=== PATIENT | male | born 1955 | race African-American/Black ===

== ENCOUNTER 2020-03-11 20:56 | Emergency (ER) | payer OTHER ==
[~2020-03-11] VITALS: Ht 167.6 cm; Wt 62.0 kg
--- NOTE | 2020-03-11 21:16 | PHYS DOC ---
Past History Past Medical History: Bronchitis, Diabetes, Pneumonia Past Medical History + COVID General Adult EDM: Chief Complaint: SHORTNESS OF BREATH HPI: HPI: " Mumbles".."..I so...short ...breath...COVID..." Patient is a 64 year old male who presents with above hx and complaints of +COVID. Pt. Just arrived from [place] after a 20-hour drive. Patient reportedly was sick with COVID down in [place]. Was hospitalized for short time and discharged yesterday. Pt.very poor historian. Patient extremely dyspneic and hypoxic on room air. Review of Systems: Review of Systems: Constitutional: Hx. of fever and chills Eyes: Denies change in visual acuity HENT: Denies nasal congestion or sore throat Respiratory: History of cough and shortness of breath Cardiovascular: Denies chest pain or edema GI: Denies abdominal pain, nausea, vomiting, bloody stools or diarrhea : Denies dysuria Musculoskeletal: Denies back pain or joint pain Integument: Denies rash Neurologic: Denies headache, focal weakness or sensory changes Endocrine: Denies polyuria or polydipsia Lymphatic: Denies swollen glands Psychiatric: Denies depression or anxiety Heart Score: HEART Score for Chest Pain: HEART Score for Chest Pain Response (Comments) Value History Highly Suspicious 2 ECG Nonspecific Repolarizatio 1 Age >45 - < 65 1 Risk Factors 1 or 2 Risk Factors 1 Troponin < Normal Limit 0 Total 5 Risk Factors: Risk Factors: DM, Current or recent (<one month) smoker, HTN, HLP, family hi story of CAD, obesity. Risk Scores: Score 0 - 3: 2.5% MACE over next 6 weeks - Discharge Home Score 4 - 6: 20.3% MACE over next 6 weeks - Admit for Clinical Observation Score 7 - 10: 72.7% MACE over next 6 weeks - Early Invasive Strategies Family History: Family History: Not currently available Current Medications: Current Meds: See nursing for home meds Allergies: Allergies: No known drug allergies Physical Exam: PE: Constitutional: in acute distress, very ill in appearance. [] HENT: Normocephalic, atraumatic, bilateral external ears normal, oropharynx dry, no oral exudates, nose normal. [Poor dentition Eyes: PERRLA, EOMI, conjunctiva normal, no discharge. [Arcus Neck: Normal range of motion, no tenderness, supple, no stridor. [] Cardiovascular: Tachycardia heart rate regular rhythm, no murmur [] occasional PVCs PMI to Lt. Lungs & Thorax: Bilateral breath sounds with rhonchi and wheezing throughout on auscultation [. Patient had] intercostal retractions. Abdomen: Bowel sounds decreased, soft, no tenderness, no masses, no pulsatile masses. [] Abdomen distended and tympanic. Noncircumcised male Skin: Warm, dry, no erythema, no rash. Poor turgor. Back: No tenderness, no CVA tenderness. [] Extremities: No tenderness, peripheral cyanosis, no clubbing, ROM intact, no e nara. Arthritic changes Neurologic: Alert times name and place, moving all extremities. Does appear to have distal sensory, no focal deficits noted. [] Psychologic: Affect anxious, judgement impaired, mood depressed EKG: EKG: My interpretation EKG shows a sinus tachycardia with strain pattern. Inferior changes. Abnormal EKG [] Radiology/Procedures: Radiology/Procedures: [address] [address] IMAGING REPORT Signed PATIENT: CISCO RODRÍGUEZ ACCOUNT: [id number] : 1955 LOCATION: ER AGE: 64 SEX: M EXAM STATUS: REG ER ORD. PHYSICIAN: MARYELLEN MULLINS MD REASON: chest tube PROCEDURE: CHEST AP ONLY AP portable chest radiograph 03/12/2020 Clinical History: Post chest tube placement. An AP supine portable digital radiograph of the chest was obtained. Comparison study is dated 03/11/2020. The ET and NG tube and left-sided chest tube are unchanged in position. A right-sided chest tube placed extends to overlie the right upper lobe. The large right pneumothorax seen on the previous study has largely resolved. A Very small right pneumothorax is seen. Expansion of the right lung is noted. Patchy perihilar areas of infiltrate/atelectasis are seen involving both lungs. Subcutaneous emphysema is seen along the chest wall, right greater than left. The cardiac silhouette is mildly enlarged. The thoracic aorta is mildly tortuous. The osseous structures are unchanged. Impression: Interval placement of a right-sided chest tube. The large right pneumothorax has largely resolved. Electronically signed by: Tan Parada MD (03/12/2020 12:35 AM) [id number] DICTATED AND SIGNED BY: TAN PARADA MD DATE: 03/12/20 0035 CC: MARYELLEN MULLINS MD; PCP,NO ~ [][place] [address] IMAGING REPORT Signed PATIENT: CISCO RODRÍGUEZ ACCOUNT: [id number] : 1955 LOCATION: ER AGE: 64 SEX: M EXAM STATUS: REG ER ORD. PHYSICIAN: MARYELLEN MULLINS MD REASON: COVID, HYPOXIA, POST INTUBATION. PROCEDURE: PORTABLE CHEST 1V AP portable chest radiograph 03/11/2020 Clinical History: Hypoxia. Post intubation.. Two AP supine portable digital radiographs of the chest were obtained. There is an is made to patient's CT scan of the chest dated 02/19/2011. An ET tube has been placed. The tip of this tube overlies the trachea 1 cm below the level of clavicles. A NG tube has been place. The tip of this tube extends to overlie the body of the stomach. The cardiac silhouette is mildly enlarged. The thoracic aorta is mildly tortuous. There is a large right pneumothorax with marked atelectasis of the right lung. Patchy left perihilar infiltrate is seen. No pleural effusion is noted. Degenerative changes are seen involving the thoracic spine and both shoulders. IMPRESSION: 1. ET and NG tube position as discussed above. 2. Large right pneumothorax with right lung atelectasis. This finding was discussed with the emergency department. FOR INTERNAL CODING PURPOSES RESULT CODE: (C) Electronically signed by: Tan Parada MD (03/11/2020 11:32 PM) [id number] DICTATED AND SIGNED BY: TAN PARADA MD DATE: 03/11/20 233 CC: MARYELLEN MULLINS MD; PCP,NO ~ Course & Med Decision Making: Course & Med Decision Making Pertinent Labs and Imaging studies reviewed. (See chart for details) Since patient was possible suspect COVID, use of protective mcdonald, masks, gloves and body suits use during all contact with the patient Procedure notes- Attempts of titration of oxygen, unable to maintain sats. Pt. eventually intubated to secure airway and improve oxygenation.. See flowsheet. Patient received succinylcholine and Versed. Attempt was made 7.5 tube but would not not passed between the cords.. 7 Et tube then placed by glide scope to the level of 23 cm[address] in [address] with a tube linder. NG then placed. With return of gastric contents. Central line-for pressures and IV draws The-left subclavian prepped with sterile technique. Gown mask gloves drapes. Left subclavian cannulated, however patient pulled out line. It is noted shortly thereafter patient saturations were dropping. Suspect possible pneumothorax. Patient received 18-gauge second intercostal space decompression. Chest tube placed with incision, and blunt dissection dissection on left. 28. Sutured in place It was then noted noted decreased sounds on right side still patient also received intercostal 18 needle to decompress. Right chest tube in place with incision and dissection. Sterile draping and Betadine applied prior to placemen t of chest tubes. Both chest tubes sutured in place. Only 1 Pleur-evac available which was placed on the left and s Flutter valve placed on right. Patient gradually had increasing saturations and blood pressures. Central line sterile-by technique was used with drape, gowns mask and gloves placed and left femoral area. Line was sutured in place with return of venous blood all 3 ports. Biopatch placed. Dressing applied. Discussed presentation, testing and treatment plan with Dr. Salcido- will accept pt. at [facility]. Impression: 1. Respiratory failure 2. Hyperglycemia 849 3. Acute renal failure-creatinine 3.1 4. Leukocytosis 24.4- with 77 segs and 16 bands 5. History of recent positive COVID 6. Bilateral pneumothoraxes 7. Metabolic Acidosis 8. Elevated d-dimer 14.8 Critical care time 120 minutes not counting procedures-Meds and BiPAP management. Attempted to contact - did not answer her phone. Selena Disclaimer: Selena Disclaimer: This electronic medical record was generated, in whole or in part, using a voice recognition dictation system. Departure Departure: Disposition: 01 HOME/RESIDENCE PRIOR TO ADM Condition: STABLE Referrals: PCP,NO (PCP) Justification of Admission: Justification of Admission: Justification of Admission Dx: Yes Altered Mental Status: Altered Mental Status Comments: COVID + Hx. Dragon Disclaimer This chart was dictated in whole or in part using Voice Recognition software in a busy, high-work load, and often noisy Emergency Department environment. It may contain unintended and wholly unrecognized errors or omissions. Dragon Disclaimer This chart was dictated in whole or in part using Voice Recognition software in a busy, high-work load, and often noisy Emergency Department environment. It may contain unintended and wholly unrecognized errors or omissions. MARYELLEN MULLINS MD Mar 11, 2020 21:16
[2020-03-11] MEDS ORDERED: ASPIRIN CHEWABLE 81 MG TABLET. PO ONE (21:30)
[2020-03-11] MEDS ORDERED: IV RINGERS SOLUTION,LACTATED 1,000 ML IV SCH (21:30)
[2020-03-11] MEDS ORDERED: ALBUTEROL SULFATE 8GM INHALER. INH ONE (21:45)
[2020-03-11] MEDS ORDERED: SUCCINYLCHOLINE 200 MG/10 ML VIAL. ONE ×2 (21:55→23:00)
[2020-03-11] MEDS ORDERED: PROPOFOL 100 ML IV ONE (21:57)
[2020-03-11 22:04] LABS: CALCIUM 8.8 mg/dL (8.5-10.1); CREATININE 3.1 mg/dL (0.7-1.3); GFR 24.7; POTASSIUM 4.2 mmol/L (3.5-5.1)
[2020-03-11 22:10] LABS: BILIRUBIN,URINE NEG (NEG); CLARITY,URINE HAZY; COLOR,URINE YELLOW; GLUCOSE,URINE 500 mg/dL (NEG)
[2020-03-11 22:11] LABS: BACTERIA,URINE FEW /HPF (0-FEW); GRANULAR CASTS,URINE MOD /HPF; HYALINE CASTS, URINE OCC /HPF; NITRITE,URINE NEG (NEG); SQUAMOUS EPITHELIAL CELL,UR FEW /LPF; UROBILINOGEN,URINE 0.2 mg/dL (0.2 mg/dL)
[2020-03-11 22:12] LABS: YEAST,URINE PRESENT /HPF
[2020-03-11 22:13] LABS: ALBUMIN 2.8 g/dL (3.4-5.0); DIRECT BILIRUBIN 0.2 mg/dL (0.0-0.2); MAGNESIUM 3.4 mg/dL (1.8-2.4); TOTAL BILIRUBIN 0.5 mg/dL (0.2-1.0); TOTAL PROTEIN 8.3 g/dL (6.4-8.2)
[2020-03-11 22:14] LABS: BARBITURATES NEG (NEG); BENZODIAZEPINES NEG (NEG); CANNABINOIDS NEG (NEG); COCAINE NEG (NEG); METHADONE NEG (NEG); OPIATES NEG (NEG); PHENCYCLIDINE NEG (NEG)
[2020-03-11 22:17] LABS: AMPHETAMINE/METHAMPHETAMINE NEG (NEG)
[2020-03-11 22:21] LABS: BASO % 0 % (0-3); EOS % 0 % (0-3); HEMATOCRIT 48.9 % (39.0-53.0); LYMPH # 0.8 x10^3/uL (1.0-4.8); LYMPH % 3 % (24-48); MEAN CORPUSCULAR HEMOGLOBIN 33 pg (25-35); MEAN CORPUSCULAR HGB CONC 31 g/dL (31-37); MEAN CORPUSCULAR VOLUME 106 fL (79-100); MONO # 1.5 x10^3/uL (0.0-1.1); MONO % 6 % (0-9); NEUT # 22.2 x10^3uL (1.8-7.7); NEUT % 91 % (31-73); PLATELET COUNT 480 x10^3/uL (140-400); RED BLOOD COUNT 4.61 x10^6/uL (4.30-5.70); RED CELL DISTRIBUTION WIDTH 14.1 % (11.5-14.5); WHITE BLOOD COUNT 24.4 x10^3/uL (4.0-11.0)
[2020-03-11] MEDS ORDERED: MIDAZOLAM HCL PF 5 MG/5 ML VIAL. ONE ×2 (22:36→23:00)
[2020-03-11 22:39] VITALS: BP 119/66
[2020-03-11] MEDS ORDERED: VANCOMYCIN 1 GM VIAL. ONE (22:47)
[2020-03-11] MEDS ORDERED: IV NORMAL SALINE 250ML 250 ML ONE ×2 (22:50→23:54)
[2020-03-11] MEDS ORDERED: VANCOMYCIN 1 GM in IV NORMAL SALINE 250ML 250 ML IV ONE (23:00)
[2020-03-11] MEDS ORDERED: HEPARIN for IV BOLUS 10,000 UNIT/10 ML VIAL. IV ONE (23:00)
[2020-03-11] MEDS ORDERED: INSULIN REGULAR VIAL 100 UNIT in IV NORMAL SALINE 100ML 100 ML IV ONE (23:00)
[2020-03-11 23:14] LABS: % LYMPHS 2 % (24-48)
[2020-03-11 23:15] LABS: % EOS 0 % (0-5); PLT ESTIMATE ADEQUATE (ADEQUATE)
[2020-03-11 23:16] LABS: BGAS PH 7.26 (7.35-7.46)
[2020-03-11 23:16] LABS: % SEGS 77 % (35-66)
[2020-03-11 23:17] LABS: % BANDS 16 % (0-9); % BASOS 0 % (0-3); % METAS 0 % (0-0); % MONOS 5 % (0-10)
--- NOTE | 2020-03-11 23:35 | RAD ---
AP portable chest radiograph 03/11/2020 Clinical History: Hypoxia. Post intubation.. Two AP supine portable digital radiographs of the chest were obtained. There is an is made to patient's CT scan of the chest dated 02/19/2011. An ET tube has been placed. The tip of this tube overlies the trachea 1 cm below the level of clavicles. A NG tube has been place. The tip of this tube extends to overlie the body of the stomach. The cardiac silhouette is mildly enlarged. The thoracic aorta is mildly tortuous. There is a large right pneumothorax with marked atelectasis of the right lung. Patchy left perihilar infiltrate is seen. No pleural effusion is noted. Degenerative changes are seen involving the thoracic spine and both shoulders. IMPRESSION: 1. ET and NG tube position as discussed above. 2. Large right pneumothorax with right lung atelectasis. This finding was discussed with the emergency department. FOR INTERNAL CODING PURPOSES RESULT CODE: (C) Electronically signed by: Tan Parada MD (03/11/2020 11:32 PM) [id number]
[2020-03-11] MEDS ORDERED: NOREPINEPHRINE BITARTRATE 8 MG in IV DEXTROSE 5% 250 ML IV PRN (23:45)
[2020-03-11] MEDS ORDERED: NOREPINEPHRINE BITARTRATE 4 MG/4 ML VIAL. IV ONE ×2 (23:50→23:53)
[2020-03-12] MEDS ORDERED: SUCCINYLCHOLINE 200 MG/10 ML VIAL. IV ONE
--- NOTE | 2020-03-12 00:22 | RAD ---
AP portable chest radiograph 03/11/2020 Clinical History: Chest tube placement. Two AP supine portable digital radiographs of the chest were obtained. Comparison study is dated earlier the same day at 1040 hours. An ET and NG tube are unchanged in position. A left-sided chest tube has been placed and extends to overlie the medial aspect of the left upper lobe. The cardiac silhouette is mildly enlarged. The thoracic aorta is mildly tortuous. A large right pneumothorax is again seen. Right lung atelectasis is noted. Subcutaneous emphysema overlies the superior right chest wall. Patchy left perihilar infiltrate is again noted. No pleural effusion is seen. The osseous structures are unchanged. Impression: 1. Left-sided chest tube placement as discussed above. 2. Large right pneumothorax with right lung atelectasis, unchanged Electronically signed by: Tan Parada MD (03/12/2020 12:18 AM) [id number]
--- NOTE | 2020-03-12 00:22 | EKG ---
[address] [address] Test Date: 2020-03-11 Test Time: 21:43:17 Pat Name: CISCO RODRÍGUEZ Department: Room: Gender: M Prior Authorization Technician: : 1955 Requested By: MARYELLEN MULLINS Order Number: [id number] Reading MD: Measurements Intervals [place] Rate: 120 P: 114 NM: 136 QRS: 9 QRSD: 88 T: 66 QT: 326 QTc: 466 Interpretive Statements SINUS TACHYCARDIA QRS(T) CONTOUR ABNORMALITY CONSIDER INFERIOR INFARCT POSSIBLY ABNORMAL ECG RI6.02 No previous ECG available for comparison
--- NOTE | 2020-03-12 00:38 | RAD ---
AP portable chest radiograph 03/12/2020 Clinical History: Post chest tube placement. An AP supine portable digital radiograph of the chest was obtained. Comparison study is dated 03/11/2020. The ET and NG tube and left-sided chest tube are unchanged in position. A right-sided chest tube placed extends to overlie the right upper lobe. The large right pneumothorax seen on the previous study has largely resolved. A Very small right pneumothorax is seen. Expansion of the right lung is noted. Patchy perihilar areas of infiltrate/atelectasis are seen involving both lungs. Subcutaneous emphysema is seen along the chest wall, right greater than left. The cardiac silhouette is mildly enlarged. The thoracic aorta is mildly tortuous. The osseous structures are unchanged. Impression: Interval placement of a right-sided chest tube. The large right pneumothorax has largely resolved. Electronically signed by: Tan Parada MD (03/12/2020 12:35 AM) [id number]
[2020-03-12] MEDS ORDERED: MIDAZOLAM HCL PF 5 MG/5 ML VIAL. ONE (01:39)
[2020-03-12] MEDS ORDERED: methylPREDNISolone ACETATE 40 MG/ML VIAL. IM ONE (02:15)
[2020-03-12] MEDS ORDERED: IV RINGERS SOLUTION,LACTATED 1,000 ML IV ONE ×2 (02:45→03:00)
[2020-03-12 02:53] LABS: BGAS PH 7.3 (7.35-7.46)
[2020-03-12] MEDS ORDERED: MIDAZOLAM HCL PF 5 MG/5 ML VIAL. IV ONE (03:00)
== END 2020-03-12 02:28 | disposition short-term general hospital (02) ==
LOC: ER 20:56
DX: J96.90 Respiratory failure, unspecified, unspecified whether with hypoxia or hypercapnia (principal); U07.1 COVID-19; E11.65 Type 2 diabetes mellitus with hyperglycemia; N17.9 Acute kidney failure, unspecified; D72.829 Elevated white blood cell count, unspecified; J93.9 Pneumothorax, unspecified; R79.1 Abnormal coagulation profile; E87.2 Acidosis
CPT/HCPCS: 31500; 32551; 36415; 36556; 36600; 51702; 71045; 80048; 80076; 80307; 81001; 82550; 82803; 83605; 83690; 83735; 83880; 84443; 84484; 85007; 85025; 85379; 85610; 85730; 87040; 93005; 94660; 96365; 96372; 96375; 96376; 99291; 99292; J0330; J1030; J1644; J2250; J3010; J3370; J7050; J7120; U0003